=== PATIENT | female | born 1995 | race Two or more races ===

== ENCOUNTER 2022-08-08 09:45 | Observation (INO) | payer MEDICAID ==
[2022-08-08] MEDS ORDERED: PREN1TAB71 OR (12:34)
== END 2022-08-08 12:47 | disposition home or self-care (01) ==
LOC: LDRP 09:45
PROVIDERS: ADMIT Obstetrics & Gynecology; ATTEND Obstetrics & Gynecology
DX: O62.9 Abnormality of forces of labor, unspecified (principal); O26.893 Other specified pregnancy related conditions, third trimester; N89.8 Other specified noninflammatory disorders of vagina; O42.92 Full-term premature rupture of membranes, unspecified as to length of time between rupture and onset of labor; O36.8930 Maternal care for other specified fetal problems, third trimester, not applicable or unspecified; Z3A.39 39 weeks gestation of pregnancy
CPT/HCPCS: 59025; 76815; 81002; G0378

== ENCOUNTER 2022-08-10 20:09 | Inpatient (IN) | payer MEDICAID ==
[~2022-08-10] VITALS: Ht 152.4 cm; Wt 81.6 kg
[~2022-08-10 20:09] MED LIST: PREN1TAB71 OR
[2022-08-10] MEDS ORDERED: PROMETHAZINE HCL 25 MG/ML 1ML IM PRN (20:15)
[2022-08-10] MEDS ORDERED: DERMOPLAST 60ML BOTTLE TOP PRN (20:15)
[2022-08-10] MEDS ORDERED: PHISODERM TOP SOLN 240ML BTL TOP PRN (20:15)
[2022-08-10] MEDS ORDERED: LIDOCAINE 2%HCL (LOCAL ANESTH.) INJ 10ml MDV IJ PRN (20:15)
[2022-08-10] MEDS ORDERED: PENICILLIN G POT 5MIL/D5 50ML 50 ML IV ONE (20:15)
[2022-08-10] MEDS ORDERED: BUTORPHANOL TARTRATE 2 MG/1 ML VIAL IV PRN ×2 (20:15)
[2022-08-10] MEDS ORDERED: WITCH HAZEL-GLYCERIN PAD TOP PRN (20:15)
[2022-08-10] MEDS ORDERED: LACTATED RINGER'S 1,000 ML IV SCH (20:15)
[2022-08-10] MEDS ORDERED: miSOPROStol 100 mcg TAB PR PRN (20:45)
[2022-08-10] MEDS ORDERED: CARBOPROST TROMETHAMINE 250 MCG/1ML VIAL IM PRN (20:45)
[2022-08-10] MEDS ORDERED: METHYLERGONOVINE MALEATE 0.2 MG/ML AMP IM PRN (20:45)
[2022-08-10] MEDS ORDERED: LACT. RINGERS/OXYTOCIN 20UNITS 500 ML IV ONE ×2 (20:45→21:15)
[2022-08-10] MEDS ORDERED: miSOPROStol 100 mcg TAB SL PRN (20:45)
[2022-08-10] MEDS ORDERED: ONDANSETRON HCL 4 MG/2 ML VIAL IV PRN (20:45)
[2022-08-10] MEDS: miSOPROStol 50 MCG per PRE-CUT 1/2 TAB PO PRN (21:46)
[2022-08-10] MEDS ORDERED: DIPHENOXYLATE W/ATROPINE 2.5 MG TAB PO SCH (22:00)
[2022-08-10 22:01] LABS: INR 0.87 (0.9-1.15); Partial Thromboplastin Time 26.7 sec (24.6-33.4)
[2022-08-10 22:03] LABS: Urine Amorphous Crystal FEW /hpf (None Seen); Urine Bacteria FEW /hpf (None Seen); Urine Blood Negative /uL (Negative); Urine Mucus FEW (None Seen); Urine Specific Gravity 1.026 (1.001-1.035); Urine WBC 4 /hpf (0 - 5)
[2022-08-10 22:04] LABS: Albumin 2.6 g/dL (3.4-5.0); BUN/Creatinine Ratio 14.8; Basophils # (auto) 0 10 ^3/uL (0-0.2); Basophils % (auto) 0.1 % (0.0-2.0); Calcium 8.4 mg/dL (8.5-10.1); Eosinophils # (auto) 0.1 10 ^3/uL (0-0.8); Eosinophils % (auto) 0.8 % (0.0-7.0); Hematocrit 33.7 % (36.0-46.0); Hemoglobin 11.4 g/dL (12.2-16.2); Lymphocytes % (auto) 14.3 % (10.0-50.0); Mean Corpuscular Hemoglobin 33.5 pg (28.0-32.0); Mean Corpuscular Hgb Conc. 33.8 g/dL (32.0-36.0); Monocytes # (auto) 1.4 10 ^3/uL (0-1.3); Monocytes % (auto) 10.2 % (0.0-12.0); Neutrophils # (auto) 10.3 10 ^3/uL (1.6-8.6); Neutrophils % (auto) 74.6 % (37.0-80.0); Potassium 3.6 mmol/L (3.5-5.1); Red Blood Cells 3.41 10^6/uL (4.0-5.20); Red Cell Distribution Width 12.7 % (11.8-14.3); White Blood Cell 13.9 10^3/uL (4.4-10.8)
[2022-08-10 22:06] LABS: Amphetamine Screen, Urine NEGATIVE (NEGATIVE); Barbiturate Scree,Urine NEGATIVE (NEGATIVE); Benzodiazephine Screen, Urine NEGATIVE (NEGATIVE); Cannabinoid Screen, Urine NEGATIVE (NEGATIVE); Cocaine Screen, Urine NEGATIVE (NEGATIVE); Opiate Scree,Urine NEGATIVE (NEGATIVE); Phencyclidine Screen, Urine NEGATIVE (NEGATIVE)
[2022-08-10 22:07] LABS: Bilirubin, Total 0.6 mg/dL (0.2-1.0); Total Protein 6.6 g/dL (6.4-8.2)
[2022-08-11] MEDS ORDERED: PENICILLIN G POTASSIUM 2,500,000 UNITS in D5W 5% 50 ML IV SCH ×2 (00:15→06:15)
[2022-08-11] MEDS: miSOPROStol 50 MCG per PRE-CUT 1/2 TAB PO PRN (01:52)
[2022-08-11] MEDS ORDERED: LACTATED RINGER'S 500 ML IV ONE (06:00)
[2022-08-11] MEDS ORDERED: ROPIVACAINE HCL 200 ML EPI SCH ×2 (06:00→07:00)
[2022-08-11] MEDS ORDERED: fentaNYL CITRATE 100 MCG/2 ML VL IV ONE (06:00)
[2022-08-11] MEDS ORDERED: NALOXONE HCL 0.4 MG/ML VIAL IV ONE (06:00)
[2022-08-11] MEDS ORDERED: ePHEDrine SULFATE 50 MG/ML AMP IV ONE (06:00)
[2022-08-11] MEDS ORDERED: LIDOCAINE HCL 2 %PF INJ 10ML AMP IJ ONE (06:00)
[2022-08-11] MEDS ORDERED: LACTATED RINGER'S 1,000 ML IV ONE (06:00)
[2022-08-11] MEDS ORDERED: LACT. RINGERS/OXYTOCIN 20UNITS 1,000 ML IV SCH (08:15)
[2022-08-11 10:42] VITALS: BP 113/56
[2022-08-11] MEDS ORDERED: ACETAMINOPHEN 325 MG TAB PO PRN (13:00)
[2022-08-11] MEDS ORDERED: IBUPROFEN 600 MG TAB PO PRN (13:00)
[2022-08-11 15:20] VITALS: BP 116/68
[2022-08-11 19:00] VITALS: BP 110/63
[2022-08-12 06:06] LABS: RPR Non Reactive (Non Reactive)
== END 2022-08-11 23:35 | disposition home or self-care (01) | DRG 560 ==
LOC: LDRP 20:09
PROVIDERS: ADMIT Obstetrics & Gynecology; ATTEND Obstetrics & Gynecology
PROC: 3E0P7VZ Introduction of Hormone into Female Reproductive, Via Natural or Artificial Opening (ICD-10-PCS; 2022-08-10)
PROC: 3E033VJ Introduction of Other Hormone into Peripheral Vein, Percutaneous Approach (ICD-10-PCS; 2022-08-10)
PROC: 10D07Z6 Extraction of Products of Conception, Vacuum, Via Natural or Artificial Opening (ICD-10-PCS; principal; 2022-08-11)
PROC: 3E0R3BZ Introduction of Anesthetic Agent into Spinal Canal, Percutaneous Approach (ICD-10-PCS; 2022-08-11)
PROC: 00HU33Z Insertion of Infusion Device into Spinal Canal, Percutaneous Approach (ICD-10-PCS; 2022-08-11)
DX: O41.03X0 Oligohydramnios, third trimester, not applicable or unspecified (principal); Z37.0 Single live birth; O99.324 Drug use complicating childbirth; F12.90 Cannabis use, unspecified, uncomplicated; Z3A.39 39 weeks gestation of pregnancy; O71.82 Other specified trauma to perineum and vulva; Z20.822 Contact with and (suspected) exposure to COVID-19; O99.334 Smoking (tobacco) complicating childbirth; F17.200 Nicotine dependence, unspecified, uncomplicated
CPT/HCPCS: 36415; 59025; 59200; 59409; 62282; 80053; 80307; 81001; 81002; 85025; 85610; 85730; 86592; 86850; 86900; 86901; 94760; 96360; 96361; 96365; 96366; G0378; J2540; J2590; J7060

== ENCOUNTER 2023-05-27 12:26 | Emergency (ER) | payer MEDICAID ==
[~2023-05-27] VITALS: Ht 152.4 cm; Wt 66.6 kg
[2023-05-27 13:24] VITALS: BP 140/85
[2023-05-27] MEDS ORDERED: IBUP-1456 PO (14:03)
== END 2023-05-27 14:09 | disposition home or self-care (01) ==
LOC: ER 12:26
DX: S62.316A Displaced fracture of base of fifth metacarpal bone, right hand, initial encounter for closed fracture (principal); W22.01XA Walked into wall, initial encounter; Y93.89 Activity, other specified; Y92.89 Other specified places as the place of occurrence of the external cause; Y99.8 Other external cause status
CPT/HCPCS: 29125; 73110; 73130